=== PATIENT | male | born 1995 | race Caucasian/White ===

== ENCOUNTER 2025-10-15 22:55 | Emergency (ER) | payer BC, SELFPAY ==
[2025-10-15 22:59] VITALS: BP 115/68; PULSE 110; RESP 19; TEMP 36.8; O2SAT 96; BMI 33.1
--- OUTSIDE RECORDS SUMMARY | 2025-10-16 02:05 | XMS_ITS | Clinical Summary ---
Author Organization [facility] Address [address] [place] [id number] Phone Care Team Providers Care Hospitality Services Manager Name Role Phone Pcp, Unknown Primary Care Provider Unavailabl e Allergies No known active allergies Medications No known medications Active Problems No known active problems Social History Tobacco Use Types Packs/Day Years Used Date Smoking Tobacco: Never Smokeless Tobacco: Never Alcohol Use Standard Drinks/Week Comments Yes 0 (1 standard drink = 0.6 oz pur e alcohol) occ Education Answer Date Recorded Are you interested in more education? Not on gwen e 02/25/2023 Are you concerned about learning? Not on file 02/25/2023 No 02/25/2023 No 02/25/2023 Digital Access Answer Date Recorded No 03/28/2023 No 03/28/2023 No 03/28/2023 Reliable internet access at home? Not on file 03/28/2023 Device with a working camera? Not on file Sex and Gender Information Value Date Recorded Sex Assigned at Male 08/16/2025 11:55 AM EDT Legal Sex Male 4:47 PM EDT Gender Identity Male 08/16/2025 11:55 AM EDT Sexual Orientation Straight 08/16/2025 11 :55 AM EDT Last Filed Vital Signs Vital Sign Reading Time Taken Comments Blood Pressure - - Pulse - - Temperature - - Respiratory Rate - - Oxygen Saturation - - Inhaled Oxygen Concentration - - Weight 104.3 kg (230 lb) 04/26/2019 12:08 PM EDT Height 190.5 cm (6' 3 ) 04/26/2019 12:08 PM EDT Body Mass Index 28.75 04/26/2019 12:08 PM EDT Plan of Treatment Health Maintenance Due Date Last Done Comments DEPRESSION SCREENING 2007 HEPATITIS C SCREENING 2013 HIV ONE-TIME SCREENING (18-65 YEARS) 2013 Adult Td,Tdap Booster 03/22/2021 03/22/2011, 006 SMOKING STATUS SCREENING (Once After 26 Yrs) 2021 INFLUENZA VACCINE (#1) 2025 9, 10/09/2012, 10/08/2011, Additional history exists COVID-19 VACCINE ( - 2024- season) 2025 02/07/2021, 01/17/2021 HIB VACCINES Completed 11/14/1996, 12/29, 1995, Additional history exists MENINGOCOCCAL VACCINES (ACWY) Aged Out 09/07/2007 No longer eligible based on patient's age to complete this topic HEPATITIS A VACCINES Aged Out No long er eligible based on patient's age to complete this topic MENINGOCOCCAL VACCINES (B) Aged Out N o longer eligible based on patient's age to complete this topic PNEUMOCOCCAL VACCINES (0-49 years) Aged Out No longer eligible based on patient's age to complete this topic Medical Devices Not on file Insurance [facility] [place] [address] [place] [address] [place] [address] [facility] Care Teams Hospitality Services Manager Relationship Specialty Start Date End Date Pcp, Unknown PCP - General 08/16/25 Additional Source Comments The information contained in this document represents components of the legal health record. It is not the complete legal health record.[facility]
--- OUTSIDE RECORDS SUMMARY | 2025-10-16 02:05 | XMS_ITS | Clinical Summary ---
Author Organization [facility] Address [address] [place] [address] Phone Care Team Providers Care Rides Attendant Name Role Phone Elis Lagunas NP Primary Care Provider [phone] Social History Tobacco Use Types Packs/Day Years Used Date Smoking Tobacco: Never Assessed Sex and Gender Information Value Date Recorded Sex Assigned at Not on file Legal Sex Male 2:41 PM EDT Gender Identity Not on file Sexual Orientation Not on file Plan of Treatment Health Maintenance Due Date Last Done Comments DTaP,Tdap,and Td Vaccines (8 - Td or Tdap) 03/22/2021 03/22/2011, 08/09/2006, 03/03/2000, Additional history exists HPV Vaccines (1 - 3-dose SCDM series) 2022 Depression Screening 10/31/2024 HIV Screening 02/19/2025 Hepatitis C Screening 02/19/2025 Social Influencers of Health Screening 02/19/2025 COVID-19 Vaccine ( season) 2025 11/02/2021, 02/07/2021, 01/17/2021 Influenza Vaccine (#1) 2025 , 08/05/2020, 12/06/2019, Additional history exists RSV Immunization Adult Patients (1 - 1-dose 75+ series) 2070 HIB Vaccines Completed 11/14/1996, 10/31, 01/13/1996, Additional history exists IPV Vaccines Completed 02/12/1997, 10/31, 01/13/1996, Additional history exists MMR Vaccines Completed 03/03/2000, 02/12/1997 Meningococcal ACWY Vaccine Aged Out 09/07/2007, No longer eligible based on patient's age to complete this topic Varicella Vaccines Completed 09/23/2009, 03/03/2000 Hepatitis B Vaccines Completed 12/18/2018, 03/14/1996, 1995, Additional history exists Hepatitis A Vaccines Aged Out No long er eligible based on patient's age to complete this topic Meningococcal B Vaccine Aged Out No l onger eligible based on patient's age to complete this topic Pneumococcal Vaccine: Pediatrics (0 to 5 Years) and At-Risk Patients (6 to 49 Years) Aged Out No longer eligible based on patient's age to complete this topic RSV Immunization Patients Under 20 months Aged Out No longer eligible based on patient's age to complete this topic Insurance [facility] Care Teams Rides Attendant Relationship Specialty Start Date End Date Elis Lagunas NP [address] [address] PCP - General Nurse Practitioner 02/18/25
--- OUTSIDE RECORDS SUMMARY | 2025-10-16 02:05 | XMS_ITS | Patient Health Record ---
Author Organization [facility] [address] Address [address] [place] [address] Care Team Providers Care Strategic Marketing Leader Name Role Phone SANTANA WILKES Primary Care Provider JULY MUÑOZ Unavailable [phone] Allergies No Known Allergies Results Component Value Reference Range Flag Notes XR SHOULDER 2+ VIEWS LEFT Reviewed date:02/19/2025 08:24:20 AM Interpretation: Performing Lab: Notes/Report: Note See Note [facility], a member of [employer] Patient Name: SHERICE UMANA Date of : 1995 Reason for Exam: pain Exam Date: 02/18/2025 [id number] EST Report Status: Final Ordering Provider: JULY MUÑOZ PCP: JULY MUÑOZ HISTORY: The patient is a 29-year-old male with left shoulder pain and decreased range of motion following exercise. FINDINGS: AP, left posterior oblique, and transscapular views of the left shoulder are obtained. The study demonstrates no fracture, dislocation, arthritic change, or other bony abnormality. No soft tissue abnormality is seen. IMPRESSION: Normal examination. Code 11277 -------- FINAL REPOR T -------- Dictated By: Shade Rodriguez Dictated Date: 02/19/2025 08:09 ET Assigned Physician: Shade Rodriguez Reviewed and Electronically Signed By: Shade Rodriguez Signed Date: 02/19/2025 08:10 ET Workstation ID: [id number] Transcribed By: Self Edit Transcribed Date: 02/19/2025 08:09 ET Hemoglobin A1c Reviewed date:11/24/2024 08:34:30 AM Interpretation: Performing Lab:[facility], [address] [place] [address], [place], Phone - [phone], Director - MDJodry Notes/Report: Hemoglobin A1c 5.3 Reference Range: [place] Diabetes Association (ADA) Guidelines: <5.7: Decreased risk for diabetes 5.7 - 6.4: Increased risk for diabetes >6.4: Ongoing Hyperglycemia of any cause <7.0: Glycemic control for adults with diabetes Estimated Average Glucose 105 Comp. Metabolic Panel (14)-3 Reviewed date:11/24/2024 08:34:30 AM Interpretation: Performing Lab:[facility] Jacome, [address] [facility], Phone - [phone], Director - MDJodry Notes/Report: Glucose 89 70-99 mg/dL BUN 12 6-20 mg/dL Creatinine 0.92 0.76-1.27 mg/dL eGFR 115 >59 mL/min/1.73 BUN/Creatinine Ratio 13 9-20 Sodium 140 134-144 mmol/L Potassium 4.2 3.5-5.2 mmol/L Chloride 105 96-106 mmol/L Carbon Dioxide, Total 19 20-29 mmol/L L Calcium 9.5 8.7-10.2 mg/dL Protein, Total 7.1 6.0-8.5 g/dL Albumin 4.5 4.3-5.2 g/dL Globulin, Total 2.6 1.5-4.5 g/dL Bilirubin, Total 0.5 0.0-1.2 mg/dL Alkaline Phosphatase 82 44-121 IU/L AST (SGOT) 21 0-40 IU/L ALT (SGPT) 33 0-44 IU/L Lipid Panel-[id number] Reviewed date:11/24/2024 08:34:30 AM Interpretation: Performing Lab:[facility] [address] [place] [address], Phone - [phone], Director - MDJodry Notes/Report: Cholesterol, Total 201 100-199 mg/dL H Triglycerides 98 0-149 mg/dL HDL Cholesterol 41 >39 mg/dL VLDL Cholesterol Maurice 18 5-40 mg/dL LDL Chol Calc (NIH) 142 0-99 mg/dL H Vitamin D, 63-[id number] Reviewed date:11/24/2024 08:34:30 AM Interpretation: Performing Lab:[facility] Jacome [address] [place] [address], Phone - [phone], Director - MDJodry Notes/Report: Vitamin D, 25-Hydroxy 16.6 30.0-100.0 ng/mL L Vitamin D deficiency has been defined by the [place] [employer] and an Endocrine Society practice guideline as a level of serum 25-OH vitamin D less than 20 ng/mL (1,2). The Endocrine Society went on to further define vitamin D insufficiency as a level between 21 and 29 ng/mL (2). 1. IOM ([place] [employer]). 2010. Dietary reference intakes for calcium and D. [place]: The National Academies Press. 2. Angelica MF, Phoebe MERRITT, Kashif PENG, et al. Evaluation, treatment, and prevention of vitamin D deficiency: an Endocrine Society clinical practice guideline. JCEM. 2010; 96(7):1911-30. CBC With Differential/Platel et-[id number] Reviewed date:11/24/2024 08:34:30 AM Interpretation: Performing Lab:[facility] [place], [address], [place], Phone - [phone], Director - Jakob Notes/Report: WBC 8.4 3.4-10.8 x10E3/uL RBC 5.63 4.14-5.80 x10E6/uL Hemoglobin 15.6 13.0-17.7 g/dL Hematocrit 48.0 37.5-51.0 % MCV 85 79-97 fL MCH 27.7 26.6-33.0 pg MCHC 32.5 31.5-35.7 g/dL RDW 13.4 11.6-15.4 % Platelets 182 150-450 x10E3/uL Neutrophils 62 Not Estab. % Lymphs 30 Not Estab. % Monocytes 6 Not Estab. % Eos 1 Not Estab. % Basos 1 Not Estab. % Neutrophils (Absolute) 5.3 1.4-7.0 x10E3/uL Lymphs (Absolute) 2.5 0.7-3.1 x10E3/uL Monocytes(Absolute) 0.5 0.1-0.9 x10E3/uL Eos (Absolute) 0.1 0.0-0.4 x10E3/uL Baso (Absolute) 0.0 0.0-0.2 x10E3/uL Immature Granulocytes 0 Not Estab. % Immature Grans (Abs) 0.0 0.0-0.1 x10E3/uL TSH-[id number] Reviewed date:11/24/2024 08:34:30 AM Interpretation: Performing Lab:[facility], [address] [facility], [place], Phone - [phone], Director - Jakob Notes/Report: TSH 1.680 0.450-4.500 uIU/mL Urinalysis, Complete-[id number] Reviewed date:11/24/2024 08:34:30 AM Interpretation: Performing Lab:[facility], [address] [facility], [place], Phone - [phone], Director - MDJoeyy Notes/Report: Specific [place] 1.028 1.005-1.030 pH 5.5 5.0-7.5 Urine-Color Yellow Yellow Appearance Turbid Clear A WBC Esterase Negative Negative Protein Negative Negative/Trace Glucose Negative Negative Ketones Negative Negative Occult Blood Negative Negative Bilirubin Negative Negative Urobilinogen,Semi-Qn 0.2 0.2-1.0 mg/dL Nitrite, Urine Negative Negative Microscopic Examination Microscopic foll ows if indicated. Microscopic Examination See below: Microscopic was indicated and was performed. WBC None seen 0 - 5 /hpf RBC 0-2 0 - 2 /hpf Epithelial Cells (non renal) None seen 0 - 10 /hpf Casts None seen None seen /lpf Bacteria None seen None seen/Few Reason For Referral Reason [facility] Diagnosis [address] ain of lumbar region, initial encounter (S39.012A) Referral Organization [facility] [address] Referring Provider First Name SANTANA Referring Provider Last Name KATRIN Referring Provider Speciality Internal M edicine Referred Provider Specialty Physical The rapist General Notes Cheyanne Hobbs 03:43:25 PM > Referral faxed to [phone] and pt given copy and phone [phone] Clinical Notes Irma Ayala 07/2025 02:45:00 PM > Scheduled for 03/07 at 4 pm. Pt aware Referral Priority Routine Diagnosis 1 Acute pain of left s houlder (M25.512) Referral Organization [facility] [address] Referring Provider First Name JULY Referring Provider Last Name TONI Referring Provider Speciality Internal M edicine Referred Provider Specialty Orthopedic S urgery General Notes Cheyanne Hobbs 08:13:50 AM > faxed to [facility] phone [phone] and fax [phone] Clinical Notes Irma Ayala 07/2025 02:53:13 PM > resent Referral Priority Routine Medications Medication SIG (Take, Route, Frequency, Duration) Notes Start Date End Date Status DULoxetine HCl 60 MG Capsule Delayed Release Particles Oral; Duration: 60 Days Acti ve LORazepam 0.5 MG Tablet 1 tablet 30 dick santiago prior to diagnostic procedure or flying, may repeat x 1 per effect 30 minutes later Orally Once a day; Duration: 10 days 05/24/2025 Active Terazosin HCl 2 MG Capsule Oral; Duration: 30 Days Active busPIRone HCl 30 MG Tablet Oral; Duration: 30 Days Active Albuterol Sulfate 108 (90 Base) MCG/ACT Aerosol Powder Breath Activated 1 puff as needed Inhalation every 4 hrs Active Vraylar 3 MG Capsule 1 capsule Orally On ce a day Active traMADol HCl 50 MG Tablet 1 tablet as ne eded for pain Orally twice a day; Duration: 30 days 02/18/2025 Active Ibuprofen 800 MG Tablet 1 tablet with fo od or milk as needed Orally every 8 hrs; Duration: 10 days 02/18/2025 Active Ibuprofen 800 MG Tablet 1 tablet with fo od or milk as needed prn pain Orally every 8 hrs; Duration: 10 days 12/27/2024 Active tiZANidine HCl 4 MG Tablet 1/2-1 tablet as needed for spasm Orally Three times a day; Duration: 10 days 12/27/2024 Active Immunizations Vaccine Route Administration Date Status Comme nts influenza IM Intramuscular 09/13/2023 Administered Social History Section Notes: Pt has a Medical Marijuana card denies drinking/tobacco use Pt has a Medical Marijuana card denies drinking/tobacco use Pt has a Medical Marijuana card denies drinking/tobacco use Pt has a Medical Marijuana card denies drinking/tobacco use Pt has a Medical Marijuana card denies drinking/tobacco use Problems Problem Type SNOMED Code ICD Code Onset Dates Problem Status W/U Status Risk Notes Problem Vitamin D deficiency (60364961) Vitamin D deficiency, unspecified (E55.9) Active confirmed Problem Obesity due to excess calories (585610352) Other obesity due to excess calories (E66.09) Active confirmed Problem Hyperlipidaemia (08535826) Hyperlipidemia, unspecified hyperlipidemia type (E78.5) Active confirmed Problem Anxiety (42976405) Anxiety (F41.9) Active confi rmed Problem Hypothyroidism (69518702) Hypothyroidism, unspecified type (E03.9) Active confirmed Problem Diabetes mellitus screening (490559756) Diabetes mellitus screening (Z13.1) Active confirmed Problem Shoulder joint pain (864978180) Acute pain of left shoulder (M25.512) Active confirmed Problem Body mass index 30.00 to 34.99 (752940201977658) Body mass index [BMI] 34.0-34.9, adult (Z68.34) Active confirmed Problem Daytime somnolence (601828944346) Daytime somnolence (R40.0) Active confirmed Problem Avitaminosis D (78092352) Avitaminosis D (E55.9) Active confirmed Problem Major depression, single episode (07341400) Major depressive episode (F32.9) Active confirmed Problem Myofascial pain syndrome of lumbar spine (disorder) (250885128801566) Acute myofascial strain of lumbar region, initial encounter (S39.012A) Active confirmed Vital Signs Heart Rate 102 /min 05/21/2025 Oximetry 97 % 05/21/2025 Blood pressure diastolic 80 mm Hg 05/21/2025 Height 73 in 05/21/2025 Blood pressure systolic 138 mm Hg 05/21/2025 Weight 268 lbs 05/21/2025 BMI 35.35 kg/m2 05/21/2025 Encounters Encounter Location Date Provider Diagnosis [facility] [address] [address] 11/20/2024 JULY MUÑOZ Major depressive epi sode F32.9 ; Annual physical exam Z00.00 ; Anxiety F41.9 ; Hyperhidrosis R61 ; Other obesity due to excess calories E66.09 ; Body mass index [BMI] 34.0-34.9, adult Z68.34 ; Daytime somnolence R40.0 and Snoring R06.83 [facility] [address] [address] 12/27/2024 JULY MUÑOZ Strain of lumbar reg ion, initial encounter S39.012A [facility] [address] [address] 02/18/2025 JULY BORHOT Acute pain of left shoulder M25.512 and Decreased ROM of left shoulder M25.612 [facility] [address] [address] 05/21/2025 JULYCARMELITA TAOT Major depressive epi sode F32.9 ; Anxiety F41.9 ; Hyperhidrosis R61 ; Other obesity due to excess calories E66.09 ; Body mass index [BMI] 34.0-34.9, adult Z68.34 ; Daytime somnolence R40.0 ; Snoring R06.83 ; Acute pain of left shoulder M25.512 and Encounter for examination of blood pressure without abnormal findings Z01.30 [facility] [address] [address] 12/26/2024 TALAL WILKES [facility] [address] [address] 12/27/2024 TALAL WILKES [facility] [address] [address] 01/30/2025 TALAL WILKES [facility] [address] [address] 02/18/2025 TALAL WILKES [facility] [address] [address] 02/22/2025 JULY BORHOT [facility] [address] [address] 02/28/2025 JULY BORHOT [facility] [address] [address] 03/06/2025 TALAL WILKES [facility] [address] [facility] [address] [address] 03/11/2025 JULY BORHOT [facility] [address] [address] 03/13/2025 JULY BORHOT [facility] [address] [address] 03/14/2025 JULY BORHOT [facility] [address] [address] 05/24/2025 JULY TAOT Major depressive epi sode F32.9 Assessments Encounter Date Diagnosis (ICD Code) Assessment Notes Treatment Notes Treatment Clinical Notes Section Notes 11/20/2024 Major depressive episode (ICD-10 - F32.9) Acute Concerns/Problem List: 11/20/2024 refer for manny screening Of note, some information is being carried forward from prior records for informational purposes only and is being cited so that efficiency, safety and quality of the patient's care is not compromised This note was prepared using voice recognition software and direct typing Please excuse inadvertent jogger operator or typing errors, or uncorrected word substitutions Although every attempt has been made by the provider to proofread this document, occasional misspellings and typographical errors may still be present Due to the previous pandemic, and the use of personal protective equipment (PPE) This may decrease voice recognition accuracy Inadvertent jogger operator errors may occur 12/27/2024 Strain of lumbar region, initial encounter (ICD-10 - S39.012A) Ibuprofen Tizanidine Heat PT referral to [facility] Of note, some information is being carried forward from prior records for informational purposes only and is being cited so that efficiency, safety and quality of the patient's care is not compromised This note was prepared using voice recognition software and direct typing Please excuse inadvertent jogger operator or typing errors, or uncorrected word substitutions Although every attempt has been made by the provider to proofread this document, occasional misspellings and typographical errors may still be present Due to the previous pandemic, and the use of personal protective equipment (PPE) This may decrease voice recognition accuracy Inadvertent jogger operator errors may occur 05/21/2025 Major depressive episode (ICD-10 - F32.9) Acute Concerns/Problem List: 05/21/2025 Lorazepam as needed for flying Continue other psychiatric medications Please follow-up regarding sleep study Will see him back in early winter for a comprehensive exam with labs Of note, some information is being carried forward from prior records for informational purposes only and is being cited so that efficiency, safety and quality of the patient's care is not compromised This note was prepared using voice recognition software and direct typing Please excuse inadvertent jogger operator or typing errors, or uncorrected word substitutions Although every attempt has been made by the provider to proofread this document, occasional misspellings and typographical errors may still be present Due to the previous pandemic, and the use of personal protective equipment (PPE) This may decrease voice recognition accuracy Inadvertent jogger operator errors may occur 05/24/2025 Major depressive episode (ICD-10 - F32.9) 02/18/2025 Acute pain of left shoulder (ICD-10 - M25.512) Based on clinical assessment and physical exam, concern for shoulder impingement, rotator cuff injury, calcific tendonitis, cervical radiculopathy. Will evaluate with shoulder xray and MRI and referral to orthopedic surgery for further evaluation Prescribe Tramadol for prn use severe pain not relieved by Ibuprofen [facility] Prescription monitoring program reviewed Including controlled substances prescriptive history Of note, some information is being carried forward from prior records for informational purposes only and is being cited so that efficiency, safety and quality of the patient's care is not compromised This note was prepared using voice recognition software and direct typing Please excuse inadvertent jogger operator or typing errors, or uncorrected word substitutions Although every attempt has been made by the provider to proofread this document, occasional misspellings and typographical errors may still be present Due to the previous pandemic, and the use of personal protective equipment (PPE) This may decrease voice recognition accuracy Inadvertent jogger operator errors may occur 02/18/2025 Decreased ROM of left shoulder (ICD-10 - M25.612) Based on clinical assessment and physical exam, concern for shoulder impingement, rotator cuff injury, calcific tendonitis, cervical radiculopathy. Will evaluate with shoulder xray and MRI and referral to orthopedic surgery for further evaluation Prescribe Tramadol for prn use severe pain not relieved by Ibuprofen [facility] Prescription monitoring program reviewed Including controlled substances prescriptive history Of note, some information is being carried forward from prior records for informational purposes only and is being cited so that efficiency, safety and quality of the patient's care is not compromised This note was prepared using voice recognition software and direct typing Please excuse inadvertent jogger operator or typing errors, or uncorrected word substitutions Although every attempt has been made by the provider to proofread this document, occasional misspellings and typographical errors may still be present Due to the previous pandemic, and the use of personal protective equipment (PPE) This may decrease voice recognition accuracy Inadvertent jogger operator errors may occur 05/21/2025 Anxiety (ICD-10 - F41.9) Acute Concerns/Problem List: 05/21/2025 Lorazepam as needed for flying Continue other psychiatric medications Please follow-up regarding sleep study Will see him back in early winter for a comprehensive exam with labs Of note, some information is being carried forward from prior records for informational purposes only and is being cited so that efficiency, safety and quality of the patient's care is not compromised This note was prepared using voice recognition software and direct typing Please excuse inadvertent jogger operator or typing errors, or uncorrected word substitutions Although every attempt has been made by the provider to proofread this document, occasional misspellings and typographical errors may still be present Due to the previous pandemic, and the use of personal protective equipment (PPE) This may decrease voice recognition accuracy Inadvertent jogger operator errors may occur 11/20/2024 Anxiety (ICD-10 - F41.9) Acute Concerns/Problem List: 11/20/2024 refer for manny screening Of note, some information is being carried forward from prior records for informational purposes only and is being cited so that efficiency, safety and quality of the patient's care is not compromised This note was prepared using voice recognition software and direct typing Please excuse inadvertent jogger operator or typing errors, or uncorrected word substitutions Although every attempt has been made by the provider to proofread this document, occasional misspellings and typographical errors may still be present Due to the previous pandemic, and the use of personal protective equipment (PPE) This may decrease voice recognition accuracy Inadvertent jogger operator errors may occur 11/20/2024 Annual physical exam (ICD-10 - Z00.00) Acute Concerns/Problem List: 11/20/2024 refer for manny screening Of note, some information is being carried forward from prior records for informational purposes only and is being cited so that efficiency, safety and quality of the patient's care is not compromised This note was prepared using voice recognition software and direct typing Please excuse inadvertent jogger operator or typing errors, or uncorrected word substitutions Although every attempt has been made by the provider to proofread this document, occasional misspellings and typographical errors may still be present Due to the previous pandemic, and the use of personal protective equipment (PPE) This may decrease voice recognition accuracy Inadvertent jogger operator errors may occur 11/20/2024 Hyperhidrosis (ICD-10 - R61) Acute Concerns/Problem List: 11/20/2024 refer for manny screening Of note, some information is being carried forward from prior records for informational purposes only and is being cited so that efficiency, safety and quality of the patient's care is not compromised This note was prepared using voice recognition software and direct typing Please excuse inadvertent jogger operator or typing errors, or uncorrected word substitutions Although every attempt has been made by the provider to proofread this document, occasional misspellings and typographical errors may still be present Due to the previous pandemic, and the use of personal protective equipment (PPE) This may decrease voice recognition accuracy Inadvertent jogger operator errors may occur 05/21/2025 Hyperhidrosis (ICD-10 - R61) Acute Concerns/Problem List: 05/21/2025 Lorazepam as needed for flying Continue other psychiatric medications Please follow-up regarding sleep study Will see him back in early winter for a comprehensive exam with labs Of note, some information is being carried forward from prior records for informational purposes only and is being cited so that efficiency, safety and quality of the patient's care is not compromised This note was prepared using voice recognition software and direct typing Please excuse inadvertent jogger operator or typing errors, or uncorrected word substitutions Although every attempt has been made by the provider to proofread this document, occasional misspellings and typographical errors may still be present Due to the previous pandemic, and the use of personal protective equipment (PPE) This may decrease voice recognition accuracy Inadvertent jogger operator errors may occur 11/20/2024 Other obesity due to excess calories (ICD-10 - E66.09) Acute Concerns/Problem List: 11/20/2024 refer for manny screening Of note, some information is being carried forward from prior records for informational purposes only and is being cited so that efficiency, safety and quality of the patient's care is not compromised This note was prepared using voice recognition software and direct typing Please excuse inadvertent jogger operator or typing errors, or uncorrected word substitutions Although every attempt has been made by the provider to proofread this document, occasional misspellings and typographical errors may still be present Due to the previous pandemic, and the use of personal protective equipment (PPE) This may decrease voice recognition accuracy Inadvertent jogger operator errors may occur 05/21/2025 Other obesity due to excess calories (ICD-10 - E66.09) Acute Concerns/Problem List: 05/21/2025 Lorazepam as needed for flying Continue other psychiatric medications Please follow-up regarding sleep study Will see him back in early winter for a comprehensive exam with labs Of note, some information is being carried forward from prior records for informational purposes only and is being cited so that efficiency, safety and quality of the patient's care is not compromised This note was prepared using voice recognition software and direct typing Please excuse inadvertent jogger operator or typing errors, or uncorrected word substitutions Although every attempt has been made by the provider to proofread this document, occasional misspellings and typographical errors may still be present Due to the previous pandemic, and the use of personal protective equipment (PPE) This may decrease voice recognition accuracy Inadvertent jogger operator errors may occur 11/20/2024 Body mass index [BMI] 34.0-34.9, adult (ICD-10 - Z68.34) Acute Concerns/Problem List: 11/20/2024 refer for manny screening Of note, some information is being carried forward from prior records for informational purposes only and is being cited so that efficiency, safety and quality of the patient's care is not compromised This note was prepared using voice recognition software and direct typing Please excuse inadvertent jogger operator or typing errors, or uncorrected word substitutions Although every attempt has been made by the provider to proofread this document, occasional misspellings and typographical errors may still be present Due to the previous pandemic, and the use of personal protective equipment (PPE) This may decrease voice recognition accuracy Inadvertent jogger operator errors may occur 05/21/2025 Body mass index [BMI] 34.0-34.9, adult (ICD-10 - Z68.34) Acute Concerns/Problem List: 05/21/2025 Lorazepam as needed for flying Continue other psychiatric medications Please follow-up regarding sleep study Will see him back in early winter for a comprehensive exam with labs Of note, some information is being carried forward from prior records for informational purposes only and is being cited so that efficiency, safety and quality of the patient's care is not compromised This note was prepared using voice recognition software and direct typing Please excuse inadvertent jogger operator or typing errors, or uncorrected word substitutions Although every attempt has been made by the provider to proofread this document, occasional misspellings and typographical errors may still be present Due to the previous pandemic, and the use of personal protective equipment (PPE) This may decrease voice recognition accuracy Inadvertent jogger operator errors may occur 05/21/2025 Daytime somnolence (ICD-10 - R40.0) Acute Concerns/Problem List: 05/21/2025 Lorazepam as needed for flying Continue other psychiatric medications Please follow-up regarding sleep study Will see him back in early winter for a comprehensive exam with labs Of note, some information is being carried forward from prior records for informational purposes only and is being cited so that efficiency, safety and quality of the patient's care is not compromised This note was prepared using voice recognition software and direct typing Please excuse inadvertent jogger operator or typing errors, or uncorrected word substitutions Although every attempt has been made by the provider to proofread this document, occasional misspellings and typographical errors may still be present Due to the previous pandemic, and the use of personal protective equipment (PPE) This may decrease voice recognition accuracy Inadvertent jogger operator errors may occur 11/20/2024 Daytime somnolence (ICD-10 - R40.0) Acute Concerns/Problem List: 11/20/2024 refer for manny screening Of note, some information is being carried forward from prior records for informational purposes only and is being cited so that efficiency, safety and quality of the patient's care is not compromised This note was prepared using voice recognition software and direct typing Please excuse inadvertent jogger operator or typing errors, or uncorrected word substitutions Although every attempt has been made by the provider to proofread this document, occasional misspellings and typographical errors may still be present Due to the previous pandemic, and the use of personal protective equipment (PPE) This may decrease voice recognition accuracy Inadvertent jogger operator errors may occur 11/20/2024 Snoring (ICD-10 - R06.83) Acute Concerns/Problem List: 11/20/2024 refer for manny screening Of note, some information is being carried forward from prior records for informational purposes only and is being cited so that efficiency, safety and quality of the patient's care is not compromised This note was prepared using voice recognition software and direct typing Please excuse inadvertent jogger operator or typing errors, or uncorrected word substitutions Although every attempt has been made by the provider to proofread this document, occasional misspellings and typographical errors may still be present Due to the previous pandemic, and the use of personal protective equipment (PPE) This may decrease voice recognition accuracy Inadvertent jogger operator errors may occur 05/21/2025 Snoring (ICD-10 - R06.83) Acute Concerns/Problem List: 05/21/2025 Lorazepam as needed for flying Continue other psychiatric medications Please follow-up regarding sleep study Will see him back in early winter for a comprehensive exam with labs Of note, some information is being carried forward from prior records for informational purposes only and is being cited so that efficiency, safety and quality of the patient's care is not compromised This note was prepared using voice recognition software and direct typing Please excuse inadvertent jogger operator or typing errors, or uncorrected word substitutions Although every attempt has been made by the provider to proofread this document, occasional misspellings and typographical errors may still be present Due to the previous pandemic, and the use of personal protective equipment (PPE) This may decrease voice recognition accuracy Inadvertent jogger operator errors may occur 05/21/2025 Acute pain of left shoulder (ICD-10 - M25.512) Acute Concerns/Problem List: 05/21/2025 Lorazepam as needed for flying Continue other psychiatric medications Please follow-up regarding sleep study Will see him back in early winter for a comprehensive exam with labs Of note, some information is being carried forward from prior records for informational purposes only and is being cited so that efficiency, safety and quality of the patient's care is not compromised This note was prepared using voice recognition software and direct typing Please excuse inadvertent jogger operator or typing errors, or uncorrected word substitutions Although every attempt has been made by the provider to proofread this document, occasional misspellings and typographical errors may still be present Due to the previous pandemic, and the use of personal protective equipment (PPE) This may decrease voice recognition accuracy Inadvertent jogger operator errors may occur 05/21/2025 Encounter for examination of blood pressure without abnormal findings (ICD-10 - Z01.30) Acute Concerns/Problem List: 05/21/2025 Lorazepam as needed for flying Continue other psychiatric medications Please follow-up regarding sleep study Will see him back in early winter for a comprehensive exam with labs Of note, some information is being carried forward from prior records for informational purposes only and is being cited so that efficiency, safety and quality of the patient's care is not compromised This note was prepared using voice recognition software and direct typing Please excuse inadvertent jogger operator or typing errors, or uncorrected word substitutions Although every attempt has been made by the provider to proofread this document, occasional misspellings and typographical errors may still be present Due to the previous pandemic, and the use of personal protective equipment (PPE) This may decrease voice recognition accuracy Inadvertent jogger operator errors may occur Plan Of Treatment Pending Test Test Name Order Date 25OH VITAMIN D 09/13/2023 CBC (COMPLETE BLOOD COUNT) WITH DIFF CBC (COMPLETE BLOOD COUNT) WITH DIFF COMPREHENSIVE METABOLIC PANEL 09/13/2023 HEMOGLOBIN A1C 11/15/2023 HEMOGLOBIN A1C 09/13/2023 LIPID PANEL 09/13/2023 TSH 11/15/2023 TSH WITH REFLEX TO FT4 09/13/2023 URINALYSIS W/REFLEX CULTURE 09/13/2023 URINALYSIS W/REFLEX CULTURE 11/15/2023 MRI Shoulder w/o Contrast LT 02/18/2025 LIPID PANEL, STANDARD 11/20/2024 LIPID PANEL, STANDARD 05/21/2025 COMPREHENSIVE METABOLIC PANEL 05/21/2025 COMPREHENSIVE METABOLIC PANEL 11/20/2024 CBC (INCLUDES DIFF/PLT) 11/20/2024 CBC (INCLUDES DIFF/PLT) 05/21/2025 URINALYSIS, COMPLETE 05/21/2025 URINALYSIS, COMPLETE 11/20/2024 HEMOGLOBIN A1c 11/20/2024 HEMOGLOBIN A1c 05/21/2025 TSH 11/20/2024 TSH W/REFLEX TO FT4 05/21/2025 VITAMIN D,25-OH,TOTAL,IA 05/21/2025 VITAMIN D,25-OH,TOTAL,IA 11/20/2024 Shoulder Min 2 Views Left 02/18/2025 Next Appt Details Provider Name:JULY MUÑOZ, 11/21/2025 03:15:00 PM, [address] [place] [address], [place] [address], [place], [id number], Insurance Providers Payer Name Payer Address Payer Phone Subscriber Number Group Number Insured Name Patient Relationship to Insured Coverage Start Date Coverage End Date [employer] [facility] [address] [place] [address] [phone] [id number] Sherice Umana Self - patient is the insured Medical (General) History Medical History History ICD Code hemorrhoids anxiety depression
--- NOTE | 2025-10-16 02:18 | ED_ITS ---
HPI - Skin/Abscess/Foreign Bdy General Chief complaint: Skin/Abscess/Foreign Body Stated complaint: swelling in lower back Time Seen by Provider: 10/16/25 02:18 Source: patient Mode of arrival: ambulatory Limitations: no limitations History of Present Illness ED Provider: Doc TOVAR HPI narrative: Patient is a 30-year-old male presenting to the ED for evaluation of painful swelling on the superior aspect of his gluteal cleft. He noted a fever at home that has resolved prior to arrival. He has taken no medications for fever or pain. He denies vomiting and reports no other systemic symptoms. He describes a pressure sensation. No prior similar episodes. Related Data Allergies Allergy/AdvReac Type Severity Reaction Status Date / Time No Known Allergies Allergy Verified 10/15/25 23:03 Review of Systems Review of Systems: Yes all other systems are reviewed and are negative PMFSH Social History Social History Alcohol intake: never Smoked in Last 30 Days: Yes Use of substances other than those prescribed or required for medical reasons: Yes Substance Use Type: Marijuana Substance Use Frequency: Daily Advance Directives: No Advance Directives Information Provided: Yes Do you have a plan to hurt others: No Plan Physical Exam Vital Signs: Vital Signs: Last Vital Signs Temp 98.2 F 10/15/25 22:59 Pulse 110 H 10/15/25 22:59 Resp 19 10/15/25 22:59 BP 115/68 10/15/25 22:59 Pulse Ox 96 10/15/25 22:59 O2 Del Method Room Air 10/15/25 22:59 BMI result Body Mass Index 33.1 CONSTITUTIONAL: The patient appears non-toxic, well nourished and in no acute distress. Vital signs as documented. HEAD: Atraumatic, normocephalic. EYES: EOMs grossly intact, pupils equal, conjunctiva clear, no exudate. ENT: Nares patent, no discharge. Airway patent, no audible stridor, visible mucosa is pink and moist without noted lesions. NECK: trachea is midline, no obvious masses or gross abnormalities. CHEST: Symmetric movement, normal appearance. LUNGS: Non-labored work of breathing. CARDIAC: No evidence of hypoperfusion. ABDOMEN: Nondistended, no obvious injury. : Deferred. EXTREMITIES: Moves all extremities spontaneously without reported pain. No obvious injury or deformity noted. NEURO: Alert and oriented x3, CN II-XII appear grossly intact. Cerebellar Functioning grossly intact. Speech clear and appropriate. SKIN: Warm, dry, color appropriate. There is swelling, induration, fluctuance, and tenderness to the superior aspect of the gluteal cleft, consistent with pilonidal cyst, swelling is greater on the right versus the left. No active drainage. No surrounding cellulitis. No other rashes or lesions noted. Medications Administered Discontinued Medications Generic Name Dose Route Start Last Admin Trade Name Ericq PRN Reason Stop Dose Admin Acetaminophen 975 mg 10/16/25 02:25 10/16/25 02:51 Acetaminophen 325 Mg Tablet PO 10/16/25 02:26 975 mg ONCE ONE Administration Ibuprofen 600 mg 10/16/25 02:25 10/16/25 02:51 Ibuprofen 600 Mg Tablet PO 10/16/25 02:26 600 mg ONCE ONE Administration Lidocaine HCl 5 ml 10/16/25 02:25 10/16/25 03:21 Lidocaine Hcl 1 % Mpf 5 Ml Vial INFILTRATI 10/16/25 02:26 5 ml ONCE ONE Administration Medical Decision Making Medical Decision Making MDM Narrative: 2:26 AM 10/16/2025 (Archana TOVAR): Patient is a 30-year-old male presenting to the ED for evaluation of painful swelling on the superior aspect of his gluteal cleft. He noted a fever at home that has resolved prior to arrival. He has taken no medications for fever or pain. He denies vomiting and reports no other systemic symptoms. He describes a pressure sensation. No prior similar episodes. On exam patient appears to have a pilonidal cyst greater on the right than left, no associated cellulitis. Patient will be treated with Tylenol, ibuprofe n, and we will perform incision and drainage likely with packing. Procedures Abscess I/D Site: back Side (if applicable): right Local Anesthetic: lidocaine 1% Amount of anesthesia used (mL): 4 Technique: incised with blade (#11) Sent for culture/gram staining?: No Irrigation: No Packing used?: iodoform Complications: other (None) Discharge Plan Discharge Clinical Impression: Abscess of skin or subcutaneous tissue Qualifiers: Site of cutaneous abscess: buttock Qualified Code(s): L02.31 - Cutaneous abscess of buttock Patient Disposition: Home, Self-Care Instructions: Abscess (ED), Abscess Incision and Drainage (DC) Additional Instructions: Thank you for choosing [facility] Emergency [facility] for your care today. At this time there is no indication for admission to the hospital or continued ED observation, and it is safe to discharge you home. Your presentation today is consistent with a pilonidal cyst. This is an abscess which required incision and drainage. Thankfully your symptoms improved following incision and drainage and there was no indication for antibiotics. Please leave the packing in place for the next 2-3 days and then follow up with your primary care provider or return to this ED for wound re-evaluation and removal of packing. The packing allows the wound to continue draining while the abscess heals from the inside out. Please do your best to avoid removing the packing while changing your dressings. Please change your dressings twice daily or more as needed based on the level of drainage. You should take alternating (staggered) doses of ibuprofen 600mg and Tylenol 1000mg every 4 hours as needed for any additional pain. Please stay well hydrated and get plenty of rest. Please follow up with your primary care physician for re-evaluation, additional management of your symptoms, and continued preventative care. If you do not have a primary care physician, please call the [facility] at [phone] to establish a new primary care physician. While waiting to establish your new primary care physician, you can call our [facility] at [phone] for non-emergency needs. Please return to the emergency department if you develop a severe or sudden change in your symptoms, a fever over 100.4 that does not improve with Tylenol or Ibuprofen, recurrent vomiting, or any other new or worsening symptoms or concerns. Stand Alone Forms: Work/School Release Print Language: Luxembourgish
[2025-10-16] MEDS: Lidocaine HCl 1 % MPF 5 ML VIAL INFILTRATI (03:21)
[2025-10-16 03:28] VITALS: BP 115/68; PULSE 110; RESP 19; TEMP 36.8; O2SAT 96
== END 2025-10-16 03:32 | disposition home or self-care (01) ==
PROVIDERS: Emergency Provider Emergency Medicine
DX: L02.31 Cutaneous abscess of buttock (principal); R50.9 Fever, unspecified
CPT/HCPCS: 10060; 99283; 99284; J2003